=== PATIENT | male | born 1980 | race Caucasian/White ===

== ENCOUNTER 2020-08-24 08:47 | Emergency (ER) | payer OTHER ==
[2020-08-24 09:44] LABS: HEMOGLOBIN 16.5 gm/dl (14.0-17.5); RED BLOOD COUNT 5.31 M/UL (4.20-5.50); WHITE BLOOD COUNT 11.8 K/UL (4.5-11.0)
[2020-08-24 10:09] LABS: BUN/CREATININE RATIO 14 (0-10)
[2020-08-24] MEDS ORDERED: PEPCID20 MG PO (13:30)
[2020-08-24] MEDS ORDERED: ZOFRAN ODT 4 MG4 MG PO (13:30)
[2020-08-24] MEDS ORDERED: BENTYL 10MG CAP10 MG PO (13:30)
[2020-08-24] MEDS ORDERED: OMNICEF 300 MG300 MG PO (13:30)
[2020-09-01] MEDS ORDERED: HYDROCODON-ACE1 EAC2 PO (09:29)
== END 2020-08-24 13:58 | disposition home or self-care (01) ==
LOC: ER1 08:47
PROVIDERS: Nurse Practitioner
DX: K80.10 Calculus of gallbladder with chronic cholecystitis without obstruction (principal); F17.210 Nicotine dependence, cigarettes, uncomplicated; Z87.442 Personal history of urinary calculi
CPT/HCPCS: 76705; 80053; 81001; 83605; 83690; 85025; 93005; 96365; 96367; 96372; 96375; 99284; J0500; J0696; J2405; Q9967

== ENCOUNTER → 2020-08-31 | Outpatient (CLI) | payer OTHER ==
[~2020-08-31] MED LIST: BENTYL 10MG CAP10 MG PO; HYDROCODON-ACE1 EAC2 PO; OMNICEF 300 MG300 MG PO; PEPCID20 MG PO; ZOFRAN ODT 4 MG4 MG PO
== END ==
LOC: OPSV2 12:14
DX: Z01.812 Encounter for preprocedural laboratory examination (principal); Z20.822 Contact with and (suspected) exposure to COVID-19

== ENCOUNTER → 2020-09-01 | Day surgery (SDC) | payer OTHER | END | disposition home or self-care (01) | LOC: OR 07:04 | PROVIDERS: Surgery | PROC: 0FT44ZZ Resection of Gallbladder, Percutaneous Endoscopic Approach (ICD-10-PCS; principal; 2020-09-01 09:15) | DX: K80.10 Calculus of gallbladder with chronic cholecystitis without obstruction (principal); K76.0 Fatty (change of) liver, not elsewhere classified; F17.210 Nicotine dependence, cigarettes, uncomplicated; R00.1 Bradycardia, unspecified; E66.01 Morbid (severe) obesity due to excess calories; Z68.34 Body mass index [BMI] 34.0-34.9, adult; Z79.899 Other long term (current) drug therapy; Z87.442 Personal history of urinary calculi; Z98.52 Vasectomy status | CPT/HCPCS: J0690; J1100; J1885; J2001; J2250; J2405; J2704; J2710; J3010; J7030; J7120 ==